=== PATIENT | female | born 1990 | race Hispanic/Latino ===

== ENCOUNTER 2018-05-11 18:29 | Emergency (ER) | payer OTHER ==
[~2018-05-11] VITALS: Ht 165.1 cm; Wt 103.4 kg
--- OUTSIDE RECORDS SUMMARY | 2018-05-11 18:32 | XMS REPORT | Encounter Summary ---
Author Organization Unknown Address [address] [place] [address] Phone [phone] Reason for Visit Medical Complaint Instructions 1. Acute tonsillitis tonsillitis: care instructions azithromycin 250 mg tablet culture, respiratory 2. Sore throat symptom sore throat: care instructions rapid strep group A, throat 3. Body mass index 40+ - severely obese eating healthy foods: care instructions Discussion Note Pt is aaox3 and in NAD; verbalizes understanding of all instructions and has no further questions at this time Plan of Care Patient Instructions Drink plenty of fluids, and eat soft, bland foods. Change toothbrush 24hrs after starting abx. Take medications as prescribed and discussed; follow up with your PCP within 2-3 days or sooner should symptoms worsen. Reminders Provider Appointments None recorded. Lab Rapid Strep Group a, Throat 05/26/2017 [facility] Culture, Respiratory 05/26/2017 [facility] Referral None recorded. Procedures None recorded. Surgeries None recorded. Imaging None recorded. Medications Name Start Date azithromycin 250 mg tablet TAKE 2 TABLETS (500 MG) BY ORAL ROUTE ONCE DAILY FOR 1 DAY THEN 1 TABLET (250 MG) BY ORAL ROUTE ONCE DAILY FOR 4 DAYS ketoconazole 2 % shampoo Veltin 1.2 %-0.025 % topical gel Medications Administered None recorded. Vitals Height Weight BMI Blood Pressure 5 ft 3 in 230 lbs 40.7 kg/m2 118/68 mm[Hg] Lab Results Date Name Specimen Result Interpretation Description Value Range Status Address Rapid Strep Group a, Throat Result negative [facility]: [address] [place] [address] Swab Location Left and Right tonsillar pillars [facility]: [address] [place] [address] Allergies Code Code System Name Reaction Severity Status Onset NKDA Problems No Known Problems Procedures None recorded. Vaccine List None recorded. Social History Smoking Status Never Smoker Past Encounters 05/26/2017 Acute Tonsillitis; Sore Throat Symptom; Body Mass Index 40+ - Severely Obese STEPHANIE Jaime-C: [address] [place] [address], Ph. History of Present Illness Rkofy-Gqzzxmkjug-Vssmqmu Reported By: Patient HPI: Location: head/sinuses, throat. Quality: sore throat, nasal/sinus congestion, dry cough. Duration: 7days. Severity: mild. Onset/Timing: sudden. Context: no sick contacts, no foreign travel, non-smoker. Modifying factors: OTC medication. Associated Symptoms: no sputum production, no shortness of breath, no wheezing, no change in number of pillows needed to sleep at night, no sweats, no significant weight gain, no significant weight loss, no morning cough, no vomiting, no diarrhea, no rash, no nausea, no fever, no muscle aches, no headache, sore throat, fever Review of Systems:ROS as noted in the HPI Review of Systems Basic Reported By: Patient Physical Exam Adult Basic, Adult Female Complete, 14-21 Yr Females Reported By: Patient Constitutional: General Appearance: healthy-appearing, well-nourished, well-developed. Level of Distress: NAD. Ambulation: ambulating normally Psychiatric: Mental Status: active and alert. Orientation: to time, to place, to person Rve-Tzdc-Nzlbz-Throat: Ears: no lesions on external ear, no outer ear tenderness, EACs clear, TMs clear. Hearing: no hearing loss. Nose: no lesions on external nose, nares patent, no septal deviation, nasal passages clear, no sinus tenderness, no nasal discharge. Lips, Teeth, and Gums: no mouth or lip ulcers, no bleeding gums, normal dentition. Oropharynx: moist mucous membranes, erythema, exudates, tonsils enlarged 2+ Neck: Neck: FROM. Lymph Nodes: no supraclavicular LAD, anterior cervical LAD. Thyroid: no enlargement, non-tender Lungs: Respiratory effort: no dyspnea, no tachypnea. Auscultation: breath sounds normal, clear to auscultation, no wheezing, no rales/crackles, no rhonchi, no retractions Cardiovascular: Heart Auscultation: RRR, no murmurs Neurologic: Gait and Station: normal gait, normal station Skin: Inspection and palpation: no rash, no lesions, no ulcer, no abnormal nevi, no induration, no nodules, good turgor, no jaundice. Nails: normal
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
--- OUTSIDE RECORDS SUMMARY | 2018-05-11 18:32 | XMS REPORT | Summary of Care ---
Author Author [facility] regional economist [facility] Organization [facility] Address Unknown Phone Unavailable Encounter HQ Encntr_alias(FIN) [id number] Date(s): 05/25/17 - 05/25/17 [facility] regional economist [facility] [address] [place], [place] [address] [phone] Attending Physician: Angelo Paris MD Vital Signs No data available for this section Problem List Condition Effective Dates Status Health Status Informant Morbid Active obesity(Confirmed) Allergies, Adverse Reactions, Alerts Substance Reaction Severity Status NKDA Active Medications No data available for this section Results No data available for this section Immunizations No data available for this section Procedures No data available for this section Social History Social History Type Response Substance Abuse Use: None. Exercise Exercise duration: 0. Employment/School Status: Employed. 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 Alcohol Never, Type Beer, Wine, Liquor.1 Smoking Status Never smoker; Type: Cigarettes; Ready to change: No; Concerns about tobacco use in household: No; Exposure to Tobacco Smoke None; Cigarette Smoking Last 365 Days No; Reg Smoking Cessation Counseling No entered on: 05/01/17 1socially Assessment and Plan No data available for this section
--- OUTSIDE RECORDS SUMMARY | 2018-05-11 18:32 | XMS REPORT | Summary of Care ---
Author Author [facility] Organization [facility] Address Unknown Phone Unavailable Encounter HQ Marir_monica(FIN) [id number] Date(s): 02/20/17 - 02/20/17 [facility] [address] [place] [address]- [phone] Discharge Disposition: Home or Self Care Attending Physician: Emre Harmon MD Referring Physician: Emre Harmon MD Vital Signs No data available for [...] section Social History Social History Type Response Smoking Status Never smoker; Type: Cigarettes; Ready to change: No; Concerns about tobacco use in household: No; Exposure to Tobacco Smoke None; Cigarette Smoking Last 365 Days No; Reg Smoking Cessation Counseling No Assessment and Plan No data available for this section
--- OUTSIDE RECORDS SUMMARY | 2018-05-11 18:32 | XMS REPORT | Summary of Care ---
Author Author [facility] Organization [facility] Address Unknown Phone Unavailable Encounter HQ Josefntr_monica(FIN) [id number] Date(s): 09/04/17 - 09/04/17 [facility] [address], [address] [place] [address]- [phone] Discharge Disposition: Home or Self Care Attending Physician: Yovana Fulton DO Vital Signs Most recent to 1 oldest [Reference Range]: Height 165.1 cm (09/04/17 10:53 AM) Temperature Oral 97.2 DegF [96.4-99.1 DegF] (09/04/17 10:53 AM) Blood Pressure 121/80 mmHg [90-140/60-90 mmHg] (09/04/17 10:53 AM) Respiratory Rate 14 BRMIN [14-20 BRMIN] (09/04/17 10:53 AM) Peripheral Pulse 67 bpm Rate [60-100 bpm] (09/04/17 10:53 AM) Weight 102.386 kg (09/04/17 10:53 AM) Body Mass Index 37.56 m2 (09/04/17 10:53 AM) Problem List Condition Effective Dates Status Health Status Informant Acne(Confirmed) Active Infertility, Active female(Confirmed) Morbid Active obesity(Confirmed) Allergies, Adverse Reactions, Alerts Substance Reaction Severity Status NKDA Active Medications No Known Medications Results No data available for this section Immunizations No data available for this section Procedures No data available for this section Social History Social History Type Response Substance Abuse Use: None. Exercise Exercise duration: 0. Employment/School Status: Employed. 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 Alcohol Never, Type Beer, Wine, Liquor.1 Smoking Status Never smoker; Type: Cigarettes; Ready to change: No; Concerns about tobacco use in household: No; Exposure to Tobacco Smoke None; Cigarette Smoking Last 365 Days No; Reg Smoking Cessation Counseling No entered on: 09/04/17 1socially Assessment and Plan No data available for this section
--- OUTSIDE RECORDS SUMMARY | 2018-05-11 18:32 | XMS REPORT | Encounter Summary ---
Author Organization Unknown Address [address] [place] [address] Phone [phone] Reason for Visit Medical Complaint Instructions 1. Dysuria painful urination (dysuria): care instructions Macrobid 100 mg capsule urinalysis, dipstick culture, urine 2. Candidiasis of vagina vaginal yeast infection: care instructions fluconazole 150 mg tablet 3. Elevated blood pressure elevated blood pressure: care instructions dash diet: care instructions blood pressure monitoring education 4. Body mass index 30+ - obesity body mass index: care instructions learning about healthy weight Discussion Note: None recorded. Plan of Care Patient Instructions A urinary tract infection, or UTI, is a general term for an infection anywhere between the kidneys and the urethra (where urine comes out). Most UTIs are bladder infections. They often cause pain or burning when you urinate. UTIs are caused by bacteria and can be cured with antibiotics. Be sure to complete your treatment so that the infection goes away. How can you care for yourself at home? Take your antibiotics as directed. Do not stop taking them just because you feel better. You need to take the full course of antibiotics. Drink extra water and other fluids for the next day or two. This may help wash out the bacteria that are causing the infection. (If you have kidney, heart, or liver disease and have to limit fluids, talk with your doctor before you increase your fluid intake.) Avoid drinks that are carbonated or have caffeine. They can irritate the bladder. Urinate often. Try to empty your bladder each time. To relieve pain, take a hot bath or lay a heating pad set on low over your lower belly or genital area. Never go to sleep with a heating pad in place. To prevent UTIs Drink plenty of water each day. This helps you urinate often, which clears bacteria from your system. (If you have kidney, heart, or liver disease and have to limit fluids, talk with your doctor before you increase your fluid intake.) Urinate when you need to. Urinate right after you have sex. Change sanitary pads often. Avoid douches, bubble baths, feminine hygiene sprays, and other feminine hygiene products that have deodorants. After going to the bathroom, wipe from front to back. When should you call for help? Call your doctor now or seek immediate medical care if: Symptoms such as fever, chills, nausea, or vomiting get worse or appear for the first time. You have new pain in your back just below your rib cage. This is called flank pain. There is new blood or pus in your urine. You have any problems with your antibiotic medicine. Watch closely for changes in your health, and be sure to contact your doctor if: You are not getting better after taking an antibiotic for 2 days. Your symptoms go away but then come back. Reminders Provider Appointments None recorded. Lab Urinalysis, Dipstick 02/20/2018 [facility] Culture, Urine 02/20/2018 [facility] Referral None recorded. Procedures None recorded. Surgeries None recorded. Imaging None recorded. Medications Name Start Date fluconazole 150 mg tablet Take 1 tablet by oral route. 03/21 (28) 1 mg-20 mcg (21)/75 mg (7) tablet ketoconazole 2 % shampoo Macrobid 100 mg capsule Take 1 capsule every 12 hours by oral route for 3 days. metronidazole 0.75 % vaginal gel phentermine 37.5 mg tablet TK 1 T PO QD prednisone 10 mg tablets in a dose pack Veltin 1.2 %-0.025 % topical gel Medications Administered None recorded. Vitals Height Weight BMI Blood Pressure 5 ft 6 in 230 lbs 37.1 kg/m2 110/80 mm[Hg] Lab Results Date Name Specimen Result Interpretation Description Value Range Status Address Urinalysis, Dipstick Color : Bia [facility]: [address] [place] [address] Clarity : Cloudy [facility]: [address] [place] [address] Leukocytes : Trace [facility]: [address] [place] [address] Nitrites : Negative [facility]: [address] [place] [address] Urobilinogen : Normal [facility]: [address] [place] [address] Protein : Trace [facility]: [address] [place] [address] Ph : 7.0 [facility]: [address] [place] [address] Blood : Negative [facility]: [address] [place] [address] Specific Crowley : 1.000 [facility]: [address] [facility] Ketones : Small [facility]: [address] [facility] Bilirubin : Negative [facility]: [facility] Glucose Negative [facility]: [address] [facility] Allergies Code Code System Name Reaction Severity Status Onset NKDA Problems No Known Problems Procedures None recorded. Vaccine List None recorded. Social History Smoking Status Never Smoker Past Encounters 02/20/2018 Dysuria; Candidiasis of Vagina; Elevated Blood Pressure; Body Mass Index 30+ - Obesity Iraidamart Kamaljit, LAB ASSISTANT-C: [address] [place] [address], Ph. History of Present Illness [id number]-[id number] Reported By: Patient HPI: Quality: pain, pressure, aching. Severity: moderate. Duration: started 2 days. Onset/Timing: gradual. Context: no known exposure to STD, no prior history of STDs, sexually active. Modifying factors OTC medication. Associated Symptoms: no fever/chills, no flank pain, no jaundice, no blood in the urine, no pain during urination, no vaginal discharge, no urgency, no blisters on genitals, no rash on genitals, no muscle aches, no headache, urinary frequency, feeling of incomplete emptying of bladder Review of Systems:ROS as noted in the HPI Review of Systems Basic Reported By: Patient Physical Exam Adult Basic, Adult Female Complete Reported By: Patient Constitutional: General Appearance: obese. Level of Distress: NAD. Ambulation: ambulating normally Psychiatric: Mental Status: active and alert. Orientation: to time, to place, to person Lungs: Respiratory effort: no dyspnea, no tachypnea, no use of accessory muscles, no intercostal retractions. Auscultation: breath sounds normal Cardiovascular: Heart Auscultation: RRR, no murmurs Abdomen: Inspection and Palpation: soft, non-distended, no tenderness, no guarding, no rebound tenderness, no masses, no CVA tenderness
--- OUTSIDE RECORDS SUMMARY | 2018-05-11 18:32 | XMS REPORT | Encounter Summary ---
Author Organization Unknown Address [address] [place] [id number] Phone [phone] Reason for Visit Medical Complaint Instructions 1. Dysuria painful urination (dysuria): care instructions urinalysis, dipstick CT + NG RNA, PCR, unspecified specimen culture, urine Bactrim DS 800 mg-160 mg tablet 2. Body mass index 30+ - obesity body [...] Provider Appointments None recorded. Lab Urinalysis, Dipstick 03/29/[address] [facility] [address] + NG RNA, PCR, Unspecified Specimen 03/29/2018 [facility] Culture, Urine 03/29/2018 [facility] Referral None recorded. Procedures None recorded. Surgeries None recorded. Imaging None recorded. Medications Name Start Date Bactrim DS 800 mg-160 mg tablet Take 1 tablet every 12 hours by oral route for 7 days. fluconazole 150 mg tablet Take 1 tablet by oral route. 03/21 (28) 1 mg-20 mcg (21)/75 mg (7) tablet ketoconazole 2 % shampoo metronidazole 0.75 % vaginal gel nitrofurantoin monohydrate/macrocrystals 100 mg capsule Take 1 capsule every 12 hours by oral route for 3 days. phentermine 37.5 mg tablet TK 1 T PO QD prednisone 10 mg tablets in a dose pack Veltin 1.2 %-0.025 % topical gel Medications Administered None recorded. Vitals Height Weight BMI Blood Pressure 5 ft 6 in 230 lbs 37.1 kg/m2 100/70 mm[Hg] Lab Results Date Name Specimen Result Interpretation Description Value Range Status Address 03/29/2018 Urinalysis, Dipstick Color : Bia [facility]: [address] [place] [address] Clarity : Clear [facility]: [address] [place] [address] Leukocytes : Negative [facility]: [address] [place] [address] Nitrites : Negative [facility]: [address] [place] [address] Urobilinogen : Normal [facility]: [address] [place] [address] Protein : Trace [facility]: [address] [place] [address] Ph : 5.0 [facility]: [facility] Blood : Moderate [facility]: [facility] Specific Amity : 1.025 [facility]: [facility] Ketones : Negative [facility]: [facility] Bilirubin : Negative [facility]: [facility] Glucose Negative [facility]: [facility] Allergies Code Code System Name Reaction Severity Status Onset NKDA Problems No Known Problems Procedures None recorded. Vaccine List None recorded. Social History Smoking Status Never Smoker Past Encounters 03/29/2018 Dysuria; Body Mass Index 30+ - Obesity Haydee Mari, [facility]: [address] [place] [address], Ph. History of Present Illness [id number] Reported By: Patient HPI: Onset/Timing: actual date 7. Context: no known exposure to STD, no prior history of STDs, sexually active, unprotected intercourse. Associated Symptoms: no fever/chills, no flank pain, no jaundice, no blood in the urine, no pain during urination, no vaginal discharge, no urgency, no blisters on genitals, no rash on genitals, no muscle aches, no headache, urinary frequency; lower back pain Review of Systems:ROS as noted in the [...] Cardiovascular: Heart Auscultation: RRR, no murmurs Abdomen: Bowel Sounds: normal. Inspection and Palpation: soft, non-distended, no tenderness, no guarding, no rebound tenderness, no masses, no CVA tenderness
--- OUTSIDE RECORDS SUMMARY | 2018-05-11 18:32 | XMS REPORT | Summary of Care ---
Author Author [facility] Organization [facility] Address Unknown Phone Unavailable Encounter HQ Marir_monica(FIN) [id number] Date(s): 05/01/17 - 05/01/17 [facility] [address], [address] [place] [address]- [phone] Discharge Disposition: Home or Self Care Attending Physician: Luis Beckett MD Vital Signs Most recent to 1 oldest [Reference Range]: Height 167.64 cm (05/01/17 8:39 AM) Temperature Oral 97.5 DegF [96.4-99.1 DegF] (05/01/17 8:39 AM) Blood Pressure 107/74 mmHg [90-140/60-90 mmHg] (05/01/17 8:39 AM) Respiratory Rate 14 BRMIN [14-20 BRMIN] (05/01/17 8:39 AM) Peripheral Pulse 76 bpm Rate [60-100 bpm] (05/01/17 8:39 AM) Weight 107.273 kg (05/01/17 8:39 AM) Body Mass Index 38.17 m2 (05/01/17 8:39 AM) Problem List Condition Effective Dates Status [...] 0. Employment/School Status: Employed. Work/School description: [employer]. Alcohol Never, Type Beer, Wine, Liquor.1 Smoking Status Never smoker; Type: Cigarettes; Ready to change: No; Concerns about tobacco use in household: No; Exposure to Tobacco Smoke None; Cigarette Smoking Last 365 Days No; Reg Smoking Cessation Counseling No entered on: 05/01/17 1socially Assessment and Plan No data available for this section
[2018-05-11] MEDS ORDERED: KETOROLAC TROMETHAMINE 60 MG/2 ML VIAL IM ONE (19:15)
== END 2018-05-11 19:47 | disposition left against medical advice (07) ==
LOC: FSED 18:29
DX: M54.2 Cervicalgia (principal)
CPT/HCPCS: J1885